=== PATIENT | male | born 1975 | race Two or more races ===

== ENCOUNTER 2018-09-22 23:04 | Emergency (ER) | payer SELFPAY ==
[~2018-09-22] VITALS: Ht 177.8 cm; Wt 90.7 kg
[~2018-09-22 23:04] MED LIST: NKM
[2018-09-22 23:17] VITALS: BP 146/100
--- NOTE | 2018-09-22 23:17 | Emergency Room Report ---
History of Present Illness General Chief Complaint: Alcohol Intoxication Source: EMS Present Illness HPI This is a 43-year-old -Citizen Of [place] male with a history of cirrhosis and alcohol abuse. He presents with alcohol intoxication. He was lying front of the liquor store. Bystander called 911. He admits to drinking alcohol. Said he has generalized body pain. No trauma. No fever chills. Denies any other complaint. Allergies: Coded Allergies: No Known Allergies (Unverified , 09/22/18) Patient History Past Medical History: see triage record, old chart reviewed, other - Cirrhosis Past Surgical History: other Pertinent Family History: none Social History: Denies: smoking Immunizations: other Reviewed Nursing Documentation: PMH: Agreed; PSxH: Agreed Nursing Documentation-PMH History Of Psychiatric Problem: Yes - schizophrenia, paranoia, Hx Neurological Problems: Yes - bilateral lower extremity edema Review of Systems All Other Systems: limited - Secondary to intoxication Physical Exam Vital Signs Date Time Temp Pulse Resp B/P (MAP) Pulse Ox O2 Delivery O2 Flow Rate FiO2 09/22/18 22:55 98.6 82 18 146/100 97 Room Air vitals normal Sp02 EP Interpretation: reviewed, normal General Appearance: well appearing, no apparent distress, other - Intoxicated Head: normocephalic, atraumatic Eyes: bilateral eye PERRL, bilateral eye EOMI ENT: hearing grossly normal, normal pharynx Neck: full range of motion, supple, no meningismus Respiratory: chest non-tender, lungs clear, normal breath sounds Cardiovascular #1: regular rate, rhythm, no murmur Gastrointestinal: normal bowel sounds, non tender, no mass, no organomegaly, no bruit, non-distended, other - Ascites Musculoskeletal: back normal, normal range of motion, other - Lymphedema Psychiatric: mood/affect normal Skin: warm/dry Medical Decision Making Diagnostic Impression: Primary Impression: Acute alcoholic intoxication Qualified Codes: F10.929 - Alcohol use, unspecified with intoxication, unspecified ER Course Patient presents with acute alcohol consultation. He has an armband from the hospital. No evidence of acute injury. No evidence of CHF. We will observe until clinical sobriety. We'll discharge home in the morning. Last Vital Signs Date Time Temp Pulse Resp B/P (MAP) Pulse Ox O2 Delivery O2 Flow Rate FiO2 09/22/18 22:55 98.6 82 18 146/100 97 Room Air Status: improved Disposition: HOME, SELF-CARE Condition: Stable Patient Instructions: Alcohol Intoxication, Guef-ic-[place] Additional Instructions: Abstain from alcohol. Follow-up with your doctor in 7 days. Return if worse. Sarmad Wallis MD Sep 22, 2018 23:17
[2018-09-23 01:10] VITALS: BP 132/92
[2018-09-23 03:02] VITALS: BP 130/88
[2018-09-23 05:03] VITALS: BP 133/86
[2018-09-23 05:30] VITALS: BP 133/76
== END 2018-09-23 05:32 | disposition home or self-care (01) ==
LOC: EDBD 23:04 → EMR 23:55
DX: F10.929 Alcohol use, unspecified with intoxication, unspecified (principal); K74.60 Unspecified cirrhosis of liver; F20.0 Paranoid schizophrenia; R60.0 Localized edema; F17.200 Nicotine dependence, unspecified, uncomplicated; R52 Pain, unspecified
CPT/HCPCS: 99283